=== PATIENT | male | born 1980 | race Caucasian/White ===

== ENCOUNTER 2024-07-18 01:21 | Inpatient (IN) | payer SELFPAY ==
[2024-07-18] VITALS (7 sets, daily range): BP systolic 111–141; BP diastolic 50–109
[~2024-07-18] VITALS: Ht 182.8 cm; Wt 106.6 kg
[2024-07-18] MEDS ORDERED: Ondansetron Hydrochloride 4 MG/2 ML VIAL IV ONE (02:05)
[2024-07-18] MEDS ORDERED: SODIUM CHLORIDE 0.9% 1,000 ML IV ONE ×2 (02:30→04:30)
[2024-07-18 02:49] LABS: MEAN CELL VOLUME 85.8 fl (80.0-94.0); MEAN CORPUSCULAR HGB 29.3 pg (27.0-31.0); MEAN CORPUSCULAR HGB CONC 34.1 g/dl (33.0-37.0); MEAN PLATELET VOLUME 8.4 fl (9.6-12.3); PLATELET COUNT AUTOMATED 236 10*3/uL (130-400); RED BLOOD COUNT 7.31 10*6/uL (4.50-5.90); RED CELL DISTRI WIDTH 16.6 % (0-14.5); WHITE BLOOD COUNT 18.6 10*3/uL (4.8-10.8)
[2024-07-18 02:51] LABS: HEMATOCRIT 62.7 % (42.0-52.0); MANUAL DIFF REFLEX YES
[2024-07-18 03:10] LABS: ALKALINE PHOSPHATASE 96 U/L (46-116); BUN 19 mg/dl (9-23); CHLORIDE 102 mmol/L (98-107); LIPASE 41 U/L (12-53); POTASSIUM 5.4 mmol/L (3.4-5.1); SGPT/ALT 81 U/L (5-49); TOTAL PROTEIN 8.2 gm/dL (6.0-8.0)
[2024-07-18 03:15] LABS: BURR CELLS FEW; PLATELET SUFFICIENCY NORMAL (NORMAL); TOTAL CELLS COUNTED 100 #CELLS
[2024-07-18] MEDS ORDERED: Ketorolac Tromethamine 30 MG/ML VIAL IV ONE (04:30)
[2024-07-18] MEDS ORDERED: Piperacillin Sodium/Tazobact 50 ML IV ONE (04:50)
[2024-07-18] MEDS ORDERED: SODIUM CHLORIDE 0.9% 1,000 ML IV SCH ×2 (04:50→08:45)
[2024-07-18] MEDS ORDERED: Ondansetron Hydrochloride 4 MG/2 ML VIAL IV PRN (08:40)
[2024-07-18] MEDS ORDERED: Acetaminophen/Hydrocodone 5 MG/325 MG TABLET PO PRN (08:40)
[2024-07-18] MEDS ORDERED: BISACODYL 5 MG TAB PO PRN (08:40)
[2024-07-18] MEDS ORDERED: Enoxaparin Sodium 40 MG/0.4 ML SYR SC SCH (10:00)
[2024-07-18] MEDS ORDERED: SODIUM CHLORIDE 0.9% 100 ML BAG IV ONE (10:35)
[2024-07-18] MEDS ORDERED: IOHEXOL 350 MG/ML 100 ML VIAL IV ONE (10:35)
[2024-07-18] MEDS ORDERED: Piperacillin Sodium/Tazobact 50 ML IV SCH (12:00)
[2024-07-19] VITALS: BP 137/77
[2024-07-19 04:00] VITALS: BP 137/74
[2024-07-19 06:07] LABS: BASO % 0.2 % (0.0-1.0); EOS # 0.1 10*3/uL (0.0-0.4); EOS % 1.4 % (1.0-4.0); HEMATOCRIT 53.5 % (42.0-52.0); MEAN CELL VOLUME 88.3 fl (80.0-94.0); MEAN CORPUSCULAR HGB 28.7 pg (27.0-31.0); MEAN CORPUSCULAR HGB CONC 32.5 g/dl (33.0-37.0); MEAN PLATELET VOLUME 9.1 fl (9.6-12.3); MONO # 0.9 10*3/uL (0.1-1.0); MONO % 14.3 % (3.0-9.0); NEUT # 4.1 10*3/uL (2.3-7.9); NEUT % 63.8 % (47.0-73.0); PLATELET COUNT AUTOMATED 168 10*3/uL (130-400); RED BLOOD COUNT 6.06 10*6/uL (4.50-5.90); RED CELL DISTRI WIDTH 14.4 % (0-14.5); WHITE BLOOD COUNT 6.4 10*3/uL (4.8-10.8)
[2024-07-19 06:47] LABS: VITAMIN D, 25-HYDROXY 30.2 ng/mL (30-100)
[2024-07-19 07:09] LABS: ALKALINE PHOSPHATASE 66 U/L (46-116); BUN 15 mg/dl (9-23); CHLORIDE 100 mmol/L (98-107); CHOLESTEROL 125 mg/dL (<200); FREE T4 1.16 ng/dl (0.89-1.76); SGPT/ALT 57 U/L (5-49); TOTAL PROTEIN 6.4 gm/dL (6.0-8.0); TRIGLYCERIDES 97 mg/dl (<150)
[2024-07-19 07:24] LABS: LDL CHOLESTEROL 87 mg/dL (9-159); POTASSIUM 4.1 mmol/L (3.4-5.1)
[2024-07-19 08:00] VITALS: BP 149/94
[2024-07-19] MEDS ORDERED: CIPRO500 MG PO (11:01)
== END 2024-07-19 11:47 | disposition home or self-care (01) | DRG 871 ==
LOC: ED 01:21 → 5E 06:35 → EDHOLD 06:35 → 5E 08:02
PROVIDERS: Emergency Medicine; Registered Nurse; ADMIT Internal Medicine; ATTEND Internal Medicine
DX: A41.9 Sepsis, unspecified organism (principal); N17.0 Acute kidney failure with tubular necrosis; E87.1 Hypo-osmolality and hyponatremia; A04.9 Bacterial intestinal infection, unspecified; D75.1 Secondary polycythemia; F17.210 Nicotine dependence, cigarettes, uncomplicated; F12.90 Cannabis use, unspecified, uncomplicated; R65.20 Severe sepsis without septic shock; E87.5 Hyperkalemia; Z80.3 Family history of malignant neoplasm of breast; Z82.49 Family history of ischemic heart disease and other diseases of the circulatory system

== ENCOUNTER 2024-09-21 23:27 | Inpatient (IN) | payer SELFPAY ==
[~2024-09-21] VITALS: Ht 182.8 cm; Wt 105.7 kg
[~2024-09-21 23:27] MED LIST: CIPRO500 MG PO
[2024-09-21 23:41] VITALS: BP 160/94
[2024-09-22] MEDS ORDERED: SODIUM CHLORIDE 0.9% 1,000 ML IV SCH (00:25)
[2024-09-22 00:45] LABS: BASO # 0.1 10*3/uL (0.0-0.1); BASO % 0.6 % (0.0-1.0); EOS # 0.1 10*3/uL (0.0-0.4); EOS % 1.4 % (1.0-4.0); HEMATOCRIT 46.1 % (42.0-52.0); MEAN CELL VOLUME 86.3 fl (80.0-94.0); MEAN CORPUSCULAR HGB 29.8 pg (27.0-31.0); MEAN CORPUSCULAR HGB CONC 34.5 g/dl (33.0-37.0); MEAN PLATELET VOLUME 9.2 fl (9.6-12.3); MONO # 0.7 10*3/uL (0.1-1.0); MONO % 7.7 % (3.0-9.0); NEUT # 6.7 10*3/uL (2.3-7.9); NEUT % 70.7 % (47.0-73.0); PLATELET COUNT AUTOMATED 230 10*3/uL (130-400); RED BLOOD COUNT 5.34 10*6/uL (4.50-5.90); RED CELL DISTRI WIDTH 13.3 % (0-14.5); WHITE BLOOD COUNT 9.4 10*3/uL (4.8-10.8)
[2024-09-22 01:04] LABS: BUN 21 mg/dl (9-23); CHLORIDE 102 mmol/L (98-107); POTASSIUM 3.6 mmol/L (3.4-5.1)
[2024-09-22] MEDS ORDERED: Vancomycin Hydrochloride 250 ML IV ONE (02:05)
[2024-09-22] MEDS ORDERED: Piperacillin Sodium/Tazobact 50 ML IV ONE (02:05)
[2024-09-22] MEDS ORDERED: Ondansetron Hydrochloride 4 MG/2 ML VIAL IV PRN (03:55)
[2024-09-22] MEDS ORDERED: ACETAMINOPHEN 650 MG SUPP R PRN (03:55)
[2024-09-22] MEDS ORDERED: ACETAMINOPHEN 325 MG TAB PO PRN (03:55)
[2024-09-22] MEDS ORDERED: MORPHINE Sulfate 2 MG/ML SYR IV PRN (03:55)
[2024-09-22] MEDS ORDERED: Piperacillin Sodium/Tazobact 50 ML IV SCH ×2 (06:00→08:00)
[2024-09-22 06:32] LABS: BUN 15 mg/dl (9-23); CHLORIDE 104 mmol/L (98-107); POTASSIUM 3.5 mmol/L (3.4-5.1)
[2024-09-22 06:34] LABS: BASO % 0.4 % (0.0-1.0); EOS # 0.2 10*3/uL (0.0-0.4); EOS % 2.3 % (1.0-4.0); HEMATOCRIT 44.4 % (42.0-52.0); MEAN CELL VOLUME 87.7 fl (80.0-94.0); MEAN CORPUSCULAR HGB 29.4 pg (27.0-31.0); MEAN CORPUSCULAR HGB CONC 33.6 g/dl (33.0-37.0); MEAN PLATELET VOLUME 9.6 fl (9.6-12.3); MONO # 0.6 10*3/uL (0.1-1.0); MONO % 7.5 % (3.0-9.0); NEUT # 5.4 10*3/uL (2.3-7.9); NEUT % 64.4 % (47.0-73.0); PLATELET COUNT AUTOMATED 221 10*3/uL (130-400); RED BLOOD COUNT 5.06 10*6/uL (4.50-5.90); RED CELL DISTRI WIDTH 13.2 % (0-14.5); WHITE BLOOD COUNT 8.4 10*3/uL (4.8-10.8)
[2024-09-22 08:20] VITALS: BP 107/45
[2024-09-22] MEDS ORDERED: Nicotine 21 MG PATCH T SCH (10:00)
[2024-09-22] MEDS ORDERED: Enoxaparin Sodium 40 MG/0.4 ML SYR SC SCH (10:00)
[2024-09-22] MEDS ORDERED: VANCOMYCIN/WATER FOR INJ (PEG) 400 ML IV SCH (10:00)
[2024-09-22] MEDS ORDERED: IOHEXOL 300 MG/ML 100 ML VIAL IV ONE (10:25)
[2024-09-22] MEDS ORDERED: IOHEXOL 300 MG/ML 100 ML VIAL ONE (10:52)
[2024-09-22] MEDS ORDERED: Lidocaine Hydrochloride 5 ML AMP ONE (11:53)
[2024-09-22 12:49] VITALS: BP 131/59
[2024-09-22 19:34] VITALS: BP 141/90
[2024-09-22 19:50] VITALS: BP 135/94
[2024-09-23] VITALS: BP 155/93
[2024-09-23 06:49] LABS: BASO # 0.1 10*3/uL (0.0-0.1); BASO % 0.6 % (0.0-1.0); EOS # 0.2 10*3/uL (0.0-0.4); EOS % 2.8 % (1.0-4.0); HEMATOCRIT 47.1 % (42.0-52.0); MEAN CELL VOLUME 87.2 fl (80.0-94.0); MEAN CORPUSCULAR HGB 29.6 pg (27.0-31.0); MEAN PLATELET VOLUME 9.5 fl (9.6-12.3); MONO # 0.7 10*3/uL (0.1-1.0); MONO % 8.5 % (3.0-9.0); NEUT # 5.4 10*3/uL (2.3-7.9); NEUT % 66.3 % (47.0-73.0); PLATELET COUNT AUTOMATED 217 10*3/uL (130-400); RED CELL DISTRI WIDTH 13.2 % (0-14.5); WHITE BLOOD COUNT 8.1 10*3/uL (4.8-10.8)
[2024-09-23 06:56] LABS: BUN 11 mg/dl (9-23); CHLORIDE 102 mmol/L (98-107); POTASSIUM 3.8 mmol/L (3.4-5.1)
[2024-09-23 08:00] VITALS: BP 114/70
[2024-09-23] MEDS ORDERED: Albuterol Sulf/Ipratropium 3 ML VIAL NEB PRN (09:00)
[2024-09-23] MEDS ORDERED: GUAIFENESIN 600 MG TAB ER PO SCH (10:00)
[2024-09-23] MEDS ORDERED: ZITHROMAX250 MG PO (11:12)
[2024-09-23] MEDS ORDERED: OMNICEF300 MG PO (11:12)
[2024-09-23] MEDS ORDERED: PREDNISONE50 MG PO (11:12)
== END 2024-09-23 12:37 | disposition home or self-care (01) | DRG 871 ==
LOC: ED 23:27 → EDHOLD 09-22 02:36 → 5E 09-22 02:36 → EDHOLD 09-22 03:59 → 5E 09-22 19:06
PROVIDERS: Internal Medicine; Student in an Organized Health Care Education/Training Program; ADMIT Internal Medicine; ATTEND Internal Medicine
DX: A41.9 Sepsis, unspecified organism (principal); J12.9 Viral pneumonia, unspecified; L02.413 Cutaneous abscess of right upper limb; C43.61 Malignant melanoma of right upper limb, including shoulder; Z66 Do not resuscitate; R73.9 Hyperglycemia, unspecified; J98.4 Other disorders of lung; J20.8 Acute bronchitis due to other specified organisms; F17.210 Nicotine dependence, cigarettes, uncomplicated; Z79.899 Other long term (current) drug therapy; Z79.01 Long term (current) use of anticoagulants; Z79.2 Long term (current) use of antibiotics; Z82.49 Family history of ischemic heart disease and other diseases of the circulatory system; Z80.3 Family history of malignant neoplasm of breast; Z71.6 Tobacco abuse counseling